=== PATIENT | female | born 1945 | race Caucasian/White ===

== ENCOUNTER → 2016-11-20 | Outpatient (CLI) | payer OTHER, MEDICAID | LOC: FIMAGING 13:13 | PROVIDERS: ATTEND Pain Medicine Interventional Pain Medicine | DX: M50.322 Other cervical disc degeneration at C5-C6 level (principal); M48.02 Spinal stenosis, cervical region; M46.92 Unspecified inflammatory spondylopathy, cervical region; G95.20 Unspecified cord compression; J44.9 Chronic obstructive pulmonary disease, unspecified; G89.4 Chronic pain syndrome; N18.5 Chronic kidney disease, stage 5; I25.10 Atherosclerotic heart disease of native coronary artery without angina pectoris; K21.9 Gastro-esophageal reflux disease without esophagitis; E03.9 Hypothyroidism, unspecified; G47.00 Insomnia, unspecified; F43.12 Post-traumatic stress disorder, chronic; R60.1 Generalized edema; F41.9 Anxiety disorder, unspecified ==

== ENCOUNTER → 2017-05-22 | Outpatient (CLI) | payer OTHER, MEDICAID ==
[~2017-05-22] MED LIST: ACETAMINOPHEN 500 MG TAB PO PRN; HYDROCODONE/APAP 5/325 TAB PO PRN; LIDOCAINE 2% 2 ML INJ ONE; NALOXONE HCL 0.4 MG/ML INJ IVP PRN; NS 500 ML IV PRN; ONDANSETRON 4 MG/2 ML VIAL IVP PRN; ONDANSETRON 4 MG/2 ML VIAL ONE; PHENYLEPHRINE 10 MG/ML SDV ONE; PROMETHAZINE HCL 25 MG/ML INJ ONE; PROPOFOL 200 MG/20 ML VIAL ONE; fentaNYL 100 MCG/2 ML INJ ONE
--- NOTE | 2017-05-22 13:17 | PDANEPAE ---
ANE Past Medical History - Cardiovascular History Hx Hypertension: Yes Hx Arrhythmias: Yes Hx Chest Pain: Yes Hx Coronary Artery / Peripheral Vascular Disease: Yes Hx CHF / Valvular Disease: Yes Hx Palpitations: No Cardiovascular History Comment: A-flutter; - Pulmonary History Hx COPD: Yes Hx Asthma/Reactive Airway Disease: Yes Hx Recent Upper Respiratory Infection: No Hx Oxygen in Use at Home: Yes O2 in Use at Home (L/minute): 2L Hx Sleep Apnea: No Sleep Apnea Screening Result - Last Documented: Positive Pulmonary History Comment: asthma; emphesema; PNA - Neurologic History Hx Cerebrovascular Accident: Yes Hx Seizures: Yes Hx Dementia: No Neurologic History Comment: seizures while ~1970;. TIA x2 - Endocrine History Hx Diabetes: Yes Hypothyroid: Yes Hyperthyroid: No Obesity: no Endocrine History Comment: Insulin dependent Diabetes (T cell issue); thyroid replacement; hypothyroidism; - Renal History Hx Renal Disorders: Yes Renal History Comment: chronic kidney disease w/out heart failure; - Liver History Hx Hepatic Disorders: No - Neurological & Psychiatric Hx Hx Neurological and Psychiatric Disorders: No Neurological / Psychiatric History Comment: PTSD; anxiety, depression; - Cancer History Hx Cancer: Yes Cancer History Comment: uterine ca - Congenital Disorder History Hx Congenital Disorders: Yes Congenital History Comment: B Club feet; ankylosing spondylitis; Ichthyosis vulgaris (fish scale skin); - GI History GERD: no Hx Gastrointestinal Disorders: Yes Gastrointestinal History Comment: Krones; gastrophoresis; - Other Health History Other Health History: insomnia; cervicalgia; - Chronic Pain History Chronic Pain: Yes (general body/joints;) - Surgical History Prior Surgeries: L rotator cuff; x 4; appy; cystic ovary removal Left ; R Oophrectomy; Bilateral club feet; full hysterectomy; ANE Review of Systems Review of Systems: - Exercise capacity METS (RN): 1 METS ANE Patient History - Allergies Allergies/Adverse Reactions: aspirin [Aspirin] Allergy (Severe, Verified 11/23/10 09:41) Hives gabapentin [Gabapentin] Allergy (Severe, Verified 11/23/10 09:41) Swelling/neck,face,throat NSAIDS (Non-Steroidal Anti-Inflamma [Nsaids] Allergy (Severe, Verified 11/23/10 09:41) Hives pregabalin [From Lyrica] Allergy (Severe, Verified 11/23/10 09:41) Swelling/neck,face,throat Shellfish *RETIRED-01/21/12 [Shellfish] Allergy (Severe, Verified 11/23/10 09:41 ) Hives strawberry [[place]] Allergy (Severe, Verified 11/23/10 09:41) Hives Sulfa (Sulfonamide Antibiotics) Allergy (Severe, Verified 11/23/10 09:41) Hives latex [Latex] Allergy (Intermediate, Verified 11/23/10 09:41) HIVES, TIGHT THROAT lorazepam [Lorazepam] Allergy (Intermediate, Verified 11/23/10 09:41) Other-Enter Comments Fish Containing Products [fish] Allergy (Verified 05/16/17 16:30) Milk Containing Products Allergy (Verified 05/16/17 16:30) tree nut [Nuts] Allergy (Verified 05/16/17 16:30) IODINE Allergy (Severe, Uncoded 11/23/10 09:41) Hives fruit Allergy (Uncoded 05/16/17 16:30) - Home Medications Home Medications: AMITRIPTYLINE HCL 03/13/09 [Last Taken Unknown] Cymbalta 60 mg PO DAILY 03/13/09 [Last Taken Unknown] GABAPENTIN 03/13/09 [Last Taken Unknown] Lasix 03/13/09 [Last Taken Unknown] OPANA 03/13/09 [Last Taken Unknown] POTASSIUM CHLORIDE 03/13/09 [Last Taken Unknown] Synthroid 03/13/09 [Last Taken Unknown] Verapamil HCl 03/13/09 [Last Taken Unknown] ZANAFLEX 03/13/09 [Last Taken Unknown] Zantac 03/13/09 [Last Taken Unknown] ACTOS 07/10/09 [Last Taken Unknown] AMITRIPTYLINE HCL 07/10/09 [Last Taken Unknown] Albuterol Sulfate 0.5 mg NEB Q4 PRN 07/10/09 [Last Taken Unknown] BENAZEPRIL HCL 07/10/09 [Last Taken Unknown] Glucophage 07/10/09 [Last Taken Unknown] Morphine Er 200mg 07/10/09 [Last Taken Unknown] PROMETHAZINE HCL 07/10/09 [Last Taken Unknown] cloNIDine 07/10/09 [Last Taken Unknown] ACETAMINOPHEN 1,000 mg PO BID 05/16/17 [Last Taken Unknown] Abilify 5 mg (*) 2.5 mg PO MWF 05/16/17 [Last Taken Unknown] Allopurinol 100 mg PO DAILY 05/16/17 [Last Taken Unknown] Antacid Anti-Gas Liquid 30 ml PO TID PRN 05/16/17 [Last Taken Unknown] Aquaphor Ointment (*) TID 05/16/17 [Last Taken Unknown] Artificial Tears Eye Ointment 1 unit EACHEYE DAILY 05/16/17 [Last Taken Unknown] Biofreeze with Ilex Gel PRN 05/16/17 [Last Taken Unknown] Bisacodyl (*) 10 mg PO Q4 PRN 05/16/17 [Last Taken Unknown] CETIRIZINE HCL 10 mg PO DAILY 05/16/17 [Last Taken Unknown] CLOBETASOL PROPIONATE 0.05 05/16/17 [Last Taken Unknown] Carboxymethylcellulose Sodium 1 drop EACHEYE PRN PRN 05/16/17 [Last Taken Unknown] Dilaudid 2 mg (*) 2 mg PO HS 05/16/17 [Last Taken Unknown] Fentanyl 50 mcg TD Q3D 05/16/17 [Last Taken Unknown] Fish Oil 1,000 mg Capsule 1,000 mg PO BID 05/16/17 [Last Taken Unknown] HYDROCORTISONE ACETATE 25 mg NC BID 05/16/17 [Last Taken Unknown] Herbals/Supplements -Info Only 05/16/17 [Last Taken Unknown] Humalog 100 unit SQ 05/16/17 [Last Taken Unknown] IMODIUM A-D 4 mg PO PRN 05/16/17 [Last Taken Unknown] LEVOTHYROXINE SODIUM 137 mcg PO DAILY 05/16/17 [Last Taken Unknown] Levemir 35 units SQ HS 05/16/17 [Last Taken Unknown] Levemir 60 units SQ 05/16/17 [Last Taken Unknown] Lidocaine 4% cream TD TID PRN 05/16/17 [Last Taken Unknown] Lisinopril 5 mg PO DAILY 05/16/17 [Last Taken Unknown] Melatonin 3 MG (*) 3 mg PO 05/16/17 [Last Taken Unknown] Metformin HCl 500 mg PO BID 05/16/17 [Last Taken Unknown] Methadone HCl 10 mg (*) 20 mg PO TID 05/16/17 [Last Taken Unknown] Miralax 17 gm (*) 17 gm PO PRN 05/16/17 [Last Taken Unknown] Naproxen 250 mg PO Q4 PRN 05/16/17 [Last Taken Unknown] Nucynta 75 mg PO DAILY PRN 05/16/17 [Last Taken Unknown] Restasis Opht Drops(*) 1 drop EACHEYE BID 05/16/17 [Last Taken Unknown] Spiriva Handihaler 18 mcg PUFF DAILY 05/16/17 [Last Taken Unknown] Triamcinolone 0.1% Cream EACHEAR DAILY 05/16/17 [Last Taken Unknown] Tussin Dm Syrup 10 ml PO Q4 PRN 05/16/17 [Last Taken Unknown] Venlafaxine HCl ER 150 mg PO DAILY 05/16/17 [Last Taken Unknown] Ventolin Hfa 2 puffs Q4 05/16/17 [Last Taken Unknown] Zantac 75 75 mg PO BID 05/16/17 [Last Taken Unknown] - Anes Hx Anes Hx: no prior problems - Smoking Hx Smoking Status: Never smoked Marijuana use: No - Alcohol Use Alcohol Use: None - Family Anes Hx Family Anes Hx: neg - N/A Family Hx Anesthesia Complications: denies ANE Labs/Vital Signs - Vital Signs Blood Pressure: 150/78 Heart Rate: 100 Respiratory Rate: 20 O2 Sat (%): 96 Height: 157.48 cm Weight: 71.668 kg ANE Physical Exam - Airway Neck exam: FROM Mallampati Score: Class 2 Mouth exam: dentures - Pulmonary Pulmonary: no respiratory distress, no rales or rhonchi, reduced air movement - Cardiovascular Cardiovascular: regular rate and rhythym - ASA Status ASA Status: III ANE Anesthesia Plan Anesthesia Plan: GA w LMA Total IV Anesthesia: No
--- NOTE | 2017-05-22 15:23 | POSTANESTH ---
Post Anesthetic Evaluation Cardiovascular Status: Normal, Stable Respiratory Status: Similar to Pre-op Cond. Level of Consciousness/Mental Status: Can Participate in Eval Pain Control: Adequate, Prn Tx Ordered Nausea/Vomiting Control: Inadeq, Add Tx Reqired Complications Possibly Related to Anesthesia: None Noted
[2017-05-22] MEDS: PROMETHAZINE HCL 25 MG/ML INJ IVP PRN ×2 (15:30→15:38)
[2017-05-22 16:04] VITALS: BP 150/72
[2017-05-22 16:43] VITALS: PULSE 89; RESP 18; TEMP 208.9; O2SAT 99
== END ==
LOC: FIMAGING 11:45
PROVIDERS: ATTEND Pain Medicine Interventional Pain Medicine
DX: M51.26 Other intervertebral disc displacement, lumbar region (principal); M46.96 Unspecified inflammatory spondylopathy, lumbar region; M46.97 Unspecified inflammatory spondylopathy, lumbosacral region
CPT/HCPCS: 72148; J2370; J2405; J2550; J2704; J3010

== ENCOUNTER → 2017-09-05 | Outpatient (CLI) | payer OTHER, MEDICAID | LOC: BHFA 13:15 | PROVIDERS: ATTEND Internal Medicine Cardiovascular Disease | DX: R94.31 Abnormal electrocardiogram [ECG] [EKG] (principal) ==

== ENCOUNTER 2018-04-02 05:26 | Observation (INO) | payer OTHER, MEDICAID ==
[2018-04-02] MEDS ORDERED: NS 1,000 ML IV ONE (05:35)
[2018-04-02] MEDS ORDERED: IOPAMIDOL (ISOVUE 370) 100 ML BTL IV ONE (05:41)
--- NOTE | 2018-04-02 05:41 | EDPHY ---
H & P Time Seen by Provider: 04/02/18 05:36 HPI/ROS: HPI CHIEF COMPLAINT: Left-sided muscle spasm left-sided weakness HISTORY OF PRESENT ILLNESS: This is a 73-year-old female, she presents emergency room by EMS from [facility]. States he woke up around 4:00 a.m. With pain left side of her body typically left arm left leg. She also reports weakness. She states this weakness is new for her. States typically she suffers from chronic pain chronic arthritic pain. States that time she has muscle spasms but feels that she is more weak on left side than normal. She denies any chest pain or shortness of breath, denies headache, denies focal numbness or tingling. Upon arrival to the emergency room is noted that she appears weak on left upper extremity left lower extremity. Possibly effort dependent. Due to left-sided weakness a stroke alert has been called upon arrival. Proceed to CT scan with a head without contrast angiogram head and neck. Of note this patient arrives with a most form that says no CPR, comfort measures only antibiotics okay. Patient med list reviewed it is extensive. Also extensive allergies. Her med list includes Eliquis. Past Medical History: History of syncope, bradycardia, diabetes poor control, chronic pain, COPD, gastroparesis, history of recurrent falls, poor coordination , hypothyroidism anxiety disorder hypertension chronic kidney disease depression insomnia, PTSD Past Surgical History: No recent surgery Social History: Resides at [facility] has been there for 7 years. Denies drugs alcohol tobacco. Family History: Noncontributory ROS REVIEW OF SYSTEMS: 10 Systems were reviewed and negative with the exception of the elements mentioned in the history of present illness. Exam Constitutional elderly, nontoxic triage nursing summary reviewed, vital signs reviewed, awake/alert. Eyes normal conjunctivae and sclera, EOMI, PERRLA. HENT normal inspection, atraumatic, moist mucus membranes, no epistaxis, neck supple/ no meningismus, no raccoon eyes. Respiratory clear to auscultation bilaterally, normal breath sounds, no respiratory distress, no wheezing. Cardiovascular rate normal, regular rhythm, no murmur, no edema, distal pulses normal. Gastrointestinal Anterior abdominal ventral hernia,soft, non-tender, no rebound, no guarding, normal bowel sounds, no distension, no pulsatile mass. Genitourinary no CVA tenderness. Musculoskeletal bilateral lower extremity pitting edema, mild erythema to the bilateral anterior shins, chronic, no midline vertebral tenderness, full range of motion, no calf swelling, no tenderness of extremities, no meningismus, good pulses, neurovascularly intact. Skin pink, warm, & dry, no rash, skin atraumatic. Neurologic on neurological exam patient has weakness of left upper extremity and left lower extremity. Easy to break. Unclear if this effort dependent. awake, alert and oriented x 3, AAOx3, motor intact, sensory intact, CN II-XII intact, normal cerebellar, normal vision, normal speech. Psychiatric normal mood/affect. Heme/Lymph/Immune no lymphadenopathy. Differential Diagnosis: Includes but is not limited to in a particular order muscle spasm, chronic arthritic pain, electrolyte disturbance, infection, dehydration, CVA, TIA Medical Decision Making: Plan for this patient given her left upper extremity left lower extremity weakness plan for stroke alert. Proceed directly with the CT head without contrast CT angiogram head and neck. Will speak with [facility]. Re-evaluation: Patient has a contrast allergy typically itching. Patient did get a CT head without contrast at 5:[address] angiogram was ordered however due to the allergy she will be premedicated with Benadryl and Solu-Medrol. She typically gets hives with contrast. No airway involvement or trouble breathing. Will consult [facility] for the left upper extremity left lower extremity weakness. [id number]: [facility] Dr. Stone seen and evaluated the patient. He does not feel that the patient is a tPA candidate. Her symptoms were started when she woke. She went to bed 11:00 p.m.. She is not a tPA candidate. She is able called her leg and left arm up in the air. He does recommend MRA of the brain MRI. Does not recommend getting CT angiogram head and neck at this time. He would like the patient admitted to the hospitalist service for further evaluation. No tPA at this time. Patient's NIH stroke scale upon arrival 2.0 NIH Stroke Scale/Score (NIHSS) from [email or web address] on 04/02/2018 All calculations should be rechecked by clinician prior to use RESULT SUMMARY: 2 points NIH Stroke Scale INPUTS: 1A: Level of consciousness > 0 = Alert; keenly responsive 1B: Ask month and age > 0 = Both questions right 1C: 'Blink eyes' & 'squeeze hands' > 0 = Performs both tasks 2: Horizontal extraocular movements > 0 = Normal 3: Visual kenny > 0 = No visual loss 4: Facial palsy > 0 = Normal symmetry 5A: Left arm motor drift > 1 = Drift, but doesn't hit bed 5B: Right arm motor drift > 0 = No drift for 10 seconds 6A: Left leg motor drift > 1 = Drift, but doesn't hit bed 6B: Right leg motor drift > 0 = No drift for 5 seconds 7: Limb Ataxia > 0 = No ataxia 8: Sensation > 0 = Normal; no sensory loss 9: Language/aphasia > 0 = Normal; no aphasia 10: Dysarthria > 0 = Normal 11: Extinction/inattention > 0 = No abnormality EKG interpretation by me on record in [employer] system. Impression time of EKG 6:02 a.m., sinus rhythm rate of 91. No signs of acute ischemia. CT scan head without contrast called to me by Dr. King calhoun. No bleed or stroke. Patient be admitted the hospitalist service for further evaluation. [facility] requested that she gets an MRI of the brain today and MRA of the vessels of the brain today. I relayed this to the hospitalist service. No tPA. She denies chest pain or shortness of breath. Plan for admission for observation and further evaluation. Dr. Aviles Accepts Source: Patient, EMS - Personal History Tetanus Vaccine Date: 11/2007 - Medical/Surgical History Hx Diabetes: Yes - Social History Smoking Status: Never smoked Constitutional: Initial Vital Signs Temperature (C) 36.7 C 04/02/18 05:34 Heart Rate 76 04/02/18 05:34 Respiratory Rate 18 04/02/18 05:34 Blood Pressure 172/83 H 04/02/18 05:34 O2 Sat (%) 99 04/02/18 05:34 O2 Delivery Mode Nasal Cannula O2 (L/minute) 2 Allergies/Adverse Reactions: aspirin [Aspirin] Allergy (Severe, Verified 04/02/18 05:33) Hives gabapentin [Gabapentin] Allergy (Severe, Verified 04/02/18 05:33) Swelling/neck,face,throat NSAIDS (Non-Steroidal Anti-Inflamma [Nsaids] Allergy (Severe, Verified 04/02/18 05:33) Hives pregabalin [From Lyrica] Allergy (Severe, Verified 04/02/18 05:33) Swelling/neck,face,throat Shellfish *RETIRED-01/21/12 [Shellfish] Allergy (Severe, Verified 04/02/18 05:33 ) Hives strawberry [[place]] Allergy (Severe, Verified 04/02/18 05:33) Hives Sulfa (Sulfonamide Antibiotics) Allergy (Severe, Verified 04/02/18 05:33) Hives latex [Latex] Allergy (Intermediate, Verified 04/02/18 05:33) HIVES, TIGHT THROAT Fish Containing Products [fish] Allergy (Verified 04/02/18 05:33) Milk Containing Products Allergy (Verified 04/02/18 05:33) tree nut [Nuts] Allergy (Verified 04/02/18 05:33) IODINE Allergy (Severe, Uncoded 04/02/18 05:33) Hives fruit Allergy (Uncoded 04/02/18 05:33) Home Medications: Medication Instructions Recorded Acetaminophen [Tylenol ES 500 mg 500 mg PO BID 04/02/18 (*)] Albuterol [Proventil Inhaler HFA 2 puffs IH Q4HRS PRN 04/02/18 (*)] Albuterol [Proventil Neb] 3 ml IH BID@08,16 04/02/18 Albuterol [Proventil Neb] 3 ml IH Q4HRS PRN 04/02/18 Allopurinol [Allopurinol 100 MG 100 mg PO DAILY 04/02/18 (*)] Apixaban [Eliquis] 2.5 mg PO BID 04/02/18 Biofreeze Gel 4% 1 suleiman TP QID PRN 04/02/18 Bisacodyl [Bisacodyl (*)] 10 mg PO PRN PRN 04/02/18 Bisacodyl [Dulcolax] 10 mg RC DAILY PRN 04/02/18 Buprenorphine HCl/Naloxone HCl 1 each SL Q4HRS PRN 04/02/18 [Suboxone 2 mg-0.5 mg SL Film] Buprenorphine HCl/Naloxone HCl 1 each SL TID 04/02/18 [Suboxone 8 mg-2 mg SL Film] Carboxymethylcellulose 1% [Refresh 1 drop EACHEYE DAILY14 04/02/18 Celluvisc (*)] Carboxymethylcellulose 1% [Refresh 1 drop EACHEYE Q2HRS 04/02/18 Celluvisc (*)] Cetirizine [ZyrTEC 10 mg (*)] 10 mg PO HS 04/02/18 Cholecalciferol Vit D3 [Vitamin D3 50,000 unit PO Q30D 04/02/18 (*)] Clobetasol Propionate [Temovate] 1 suleiman TP DAILY PRN 04/02/18 Cyclobenzaprine [Flexeril 10 MG 10 mg PO HS 04/02/18 (*)] DULoxetine [Cymbalta 30 MG (*)] 30 mg PO HS 04/02/18 DULoxetine [Cymbalta 60 MG (*)] 60 mg PO DAILY 04/02/18 Etodolac [ETODOLAC] 400 mg PO BID 04/02/18 Furosemide [Lasix 20 MG (*)] 20 mg PO DAILY 04/02/18 Herbals/Supplements -Info Only 1 ea PO DAILY 04/02/18 Hydrocortisone Acetate 25 mg TX BID PRN 04/02/18 [Hemorrhoidal Hc 25 mg supp (*)] Insulin Glargine [Lantus] 10 unit SC DAILY 04/02/18 Levothyroxine [Synthroid 150 mcg 150 mcg PO DAILY06 04/02/18 (*)] Lidocaine 2% Cream 1 suleiman TP BID 04/02/18 Lidocaine 5% [Lidocaine 5% Oint] 1 suleiman TP Q4HRS PRN 04/02/18 Lidocaine [Lidocaine 4% cream] 1 suleiman TP DAILY PRN 04/02/18 Linagliptin [Tradjenta] 5 mg PO DAILY 04/02/18 Lisinopril [Zestril 5 mg (*)] 5 mg PO DAILY@17 04/02/18 Loperamide HCl [Imodium 2 mg (*)] 2 mg PO PRN PRN 04/02/18 Magnesium Hydroxide [Milk of 30 ml PO DAILY PRN 04/02/18 Magnesia] Melatonin [Melatonin 3 MG (*)] 3 mg PO HS 04/02/18 Metoclopramide [Reglan 5 mg (*)] 5 mg PO BID 04/02/18 Congress-3 Fatty Acids [Fish Oil 1000 1,000 mg PO BID 04/02/18 mg (*)] Omeprazole 20 mg PO DAILY06 04/02/18 Ondansetron HCl [Zofran] 4 mg PO Q6HRS PRN 04/02/18 Petrolat,Wht/Min Oil/Sod Chl 1 suleiman EACHEYE HS 04/02/18 [Refresh P.m. Ointment] Polyethylene Glycol 3350 [Miralax 17 gm PO DAILY PRN 04/02/18 17 gm (*)] Tiotropium Inhaler [Spiriva 1 inh IH DAILY 04/02/18 Inhaler (RX)] buPROPion SR [Wellbutrin 150mg SR 150 mg PO BID 04/02/18 (*)] cycloSPORINE 0.05% [Restasis Opht 1 drop EACHEYE BID 04/02/18 Drops(*)] guaiFENesin/DEXTROMETHORPHAN 10 ml PO Q4HRS PRN 04/02/18 [Tussin Dm Liquid] metFORMIN HCL [Glucophage 500 mg 500 mg PO BIDMEAL 04/02/18 (*)] Medical Decision Making - Data Points Laboratory Results: Laboratory Results 04/02/18 05:39 04/02/18 05:39 Medications Given: Discontinued Medications Diphenhydramine HCl (Benadryl Injection) 25 mg IVP EDNOW ONE Stop: 04/02/18 05:54 Last Admin: 04/02/18 05:55 Dose: 25 mg Sodium Chloride (Ns) 1,000 mls @ 500 mls/hr IV EDNOW ONE PRN Reason: Protocol Stop: 04/02/18 07:34 Last Admin: 04/02/18 06:05 Dose: 1,000 mls Insulin Glargine (Lantus Syringe) 10 units SC ONCE ONE Stop: 04/02/18 18:01 Last Admin: 04/02/18 17:56 Dose: Not Given Lisinopril (Zestril) 5 mg PO DAILY@17 GLORIA Stop: 09/29/18 16:59 Last Admin: 04/02/18 17:05 Dose: 5 mg Lorazepam (Ativan Injection) 1 mg IVP EDNOW ONE Stop: 04/02/18 06:48 Last Admin: 04/02/18 06:50 Dose: 1 mg Methylprednisolone Sodium Succinate (Solu-Medrol) 125 mg IVP EDNOW ONE Stop: 04/02/18 05:54 Last Admin: 04/02/18 05:56 Dose: 125 mg Morphine Sulfate (Morphine) 2 - 4 mg IVP Q4HRS PRN PRN Reason: Pain, Severe Unable to Take PO Stop: 04/12/18 16:57 Last Admin: 04/02/18 17:22 Dose: 4 mg Point of Care Test Results: Chemistry 04/02/18 05:45 POC Sodium 137 mEq/L mEq/L (135-145) POC Potassium 4.4 mEq/L mEq/L (3.3-5.0) POC Chloride 100 mEq/L mEq/L (97-110) POC BUN 32 mg/dL H mg/dL (7-23) POC Creatinine 1.5 mg/dL H mg/dL (0.6-1.0) POC Glucose 167 mg/dL H mg/dL (70-100) ISTAT H&H 04/02/18 05:45 POC Hgb 10.9 gm/dL L gm/dL (12.6-16.3) POC Hct 32 % L % (38-47) Departure - Departure Disposition: [facility] Inpatient Acute Clinical Impression: Arm pain Qualifiers: Laterality: left Qualified Code(s): M79.602 - Pain in left arm Leg pain Qualifiers: Laterality: left Qualified Code(s): M79.605 - Pain in left leg Condition: Fair
[2018-04-02 05:43] LABS: PLATELET COUNT 171 10^3/uL (150-400)
[2018-04-02 05:51] LABS: INR 1.06 (0.83-1.16)
[2018-04-02] MEDS ORDERED: methylPREDNISolone SOD SUCC 125 MG/2 ML VIAL IVP ONE (05:53)
[2018-04-02] MEDS ORDERED: ONDANSETRON DISINTEGRATING 4 MG TAB PO PRN (06:21)
[2018-04-02] MEDS ORDERED: ACETAMINOPHEN 325 MG TAB PO PRN (06:21)
[2018-04-02] MEDS ORDERED: ONDANSETRON 4 MG/2 ML VIAL IVP PRN (06:21)
[2018-04-02] MEDS ORDERED: LORazepam 2 MG/ML INJ ONE (06:46)
[2018-04-02] MEDS ORDERED: LORazepam 2 MG/ML INJ IVP ONE (06:47)
--- NOTE | 2018-04-02 06:53 | PDGENHP ---
History and Physical - Chief Complaint Weakness, pain - History of Present Illness 73 yo F w/ hx of depression, chronic pain, ?AF, DM, and COPD presents with L sided pain and weakness. The patient went to sleep in her usual state of health around 9 PM last night. She was woken up around 4 AM by severe L sided pain. She then felt like she also couldn't move her L side. She was brought to the ED and a stroke alert was called. Initial CTH did not show acute findings. Her exam has been somewhat inconsistent while here. When asked to move her L arm she has very little strength. However, when performing other tasks and distracted, she moves her L arm well. She was evaluated by [facility] via telemedicine and they did not recommend tPA noting wake-up stroke. They recommended MRI/MRA of brain noting hx of contrast allergy and CKD. Case discussed with ED physician Dr. Medina; records reviewed. History Information - Allergies/Home Medication List Allergies/Adverse Reactions: aspirin [Aspirin] Allergy (Severe, Verified 04/02/18 05:33) Hives gabapentin [Gabapentin] Allergy (Severe, Verified 04/02/18 05:33) Swelling/neck,face,throat NSAIDS (Non-Steroidal Anti-Inflamma [Nsaids] Allergy (Severe, Verified 04/02/18 05:33) Hives pregabalin [From Lyrica] Allergy (Severe, Verified 04/02/18 05:33) Swelling/neck,face,throat Shellfish *RETIRED-01/21/12 [Shellfish] Allergy (Severe, Verified 04/02/18 05:33 ) Hives strawberry [Martelle] Allergy (Severe, Verified 04/02/18 05:33) Hives Sulfa (Sulfonamide Antibiotics) Allergy (Severe, Verified 04/02/18 05:33) Hives latex [Latex] Allergy (Intermediate, Verified 04/02/18 05:33) HIVES, TIGHT THROAT Fish Containing Products [fish] Allergy (Verified 04/02/18 05:33) Milk Containing Products Allergy (Verified 04/02/18 05:33) tree nut [Nuts] Allergy (Verified 04/02/18 05:33) IODINE Allergy (Severe, Uncoded 04/02/18 05:33) Hives fruit Allergy (Uncoded 04/02/18 05:33) Home Medications: Cymbalta 60 mg PO DAILY 03/13/09 [Last Taken Unknown] Lasix 03/13/09 [Last Taken Unknown] Albuterol Sulfate 0.5 mg NEB Q4 PRN 07/10/09 [Last Taken Unknown] ACETAMINOPHEN 1,000 mg PO BID 05/16/17 [Last Taken Unknown] Allopurinol 100 mg PO DAILY 05/16/17 [Last Taken Unknown] Antacid Anti-Gas Liquid 30 ml PO TID PRN 05/16/17 [Last Taken Unknown] Biofreeze with Ilex Gel PRN 05/16/17 [Last Taken Unknown] Bisacodyl (*) 10 mg PO Q4 PRN 05/16/17 [Last Taken Unknown] CETIRIZINE HCL 10 mg PO DAILY 05/16/17 [Last Taken Unknown] CLOBETASOL PROPIONATE 0.05 05/16/17 [Last Taken Unknown] Carboxymethylcellulose Sodium 1 drop EACHEYE PRN PRN 05/16/17 [Last Taken Unknown] Fish Oil 1,000 mg Capsule 1,000 mg PO BID 05/16/17 [Last Taken Unknown] HYDROCORTISONE ACETATE 25 mg PA BID 05/16/17 [Last Taken Unknown] IMODIUM A-D 4 mg PO PRN 05/16/17 [Last Taken Unknown] LEVOTHYROXINE SODIUM 137 mcg PO DAILY 05/16/17 [Last Taken Unknown] Lidocaine 4% cream TD TID PRN 05/16/17 [Last Taken Unknown] Lisinopril 5 mg PO DAILY 05/16/17 [Last Taken Unknown] Melatonin 3 MG (*) 3 mg PO HS 05/16/17 [Last Taken Unknown] Miralax 17 gm (*) 17 gm PO PRN 05/16/17 [Last Taken Unknown] Restasis Opht Drops(*) 1 drop EACHEYE BID 05/16/17 [Last Taken Unknown] Spiriva Handihaler 18 mcg PUFF DAILY 05/16/17 [Last Taken Unknown] Cyclobenzaprine 04/02/18 [Last Taken Unknown] ETODOLAC 04/02/18 [Last Taken Unknown] Eliquis 04/02/18 [Last Taken Unknown] Fish Oil 1,000 mg Softgel 04/02/18 [Last Taken Unknown] Lantus 04/02/18 [Last Taken Unknown] Metformin HCl 04/02/18 [Last Taken Unknown] Metoclopramide 04/02/18 [Last Taken Unknown] Omeprazole 04/02/18 [Last Taken Unknown] Refresh P.m. Ointment 04/02/18 [Last Taken Unknown] Suboxone 8 mg-2 mg SL Film 04/02/18 [Last Taken Unknown] Tradjenta 04/02/18 [Last Taken Unknown] Ventolin Hfa 04/02/18 [Last Taken Unknown] Wellbutrin 150mg SR (*) 04/02/18 [Last Taken Unknown] Zofran 04/02/18 [Last Taken Unknown] I have personally reviewed and updated: family history, medical history - Past Medical History atrial fibrillation, COPD, diabetes type 2, hypertension Additional medical history: Chronic pain. Depression - Surgical History Additional surgical history: RICKY. [place]ota Rotator cuff - Family History Positive for: diabetes type II - Social History Smoking Status: Never smoked Review of Systems Review of Systems: ROS: 10pt was reviewed & negative except for what was stated in HPI & below Physical Exam Physical Exam: Temp Pulse Resp BP Pulse Ox 36.7 C 89 18 160/74 H 98 04/02/18 05:34 04/02/18 06:19 04/02/18 06:19 04/02/18 06:19 04/02/18 06:19 Constitutional: chronically ill appearing, uncomfortable Eyes: PERRL, anicteric sclera Ears, Nose, Mouth, Throat: moist mucous membranes, no oral mucosal ulcers Cardiovascular: regular rate and rhythym, systolic murmur Respiratory: no respiratory distress, clear to auscultation Gastrointestinal: normoactive bowel sounds, soft, non-tender abdomen Skin: warm, other (Chronic venous stasis dermatitis) Neurologic: AAOx3, weakness (L sided leg>arm; inconsistently noted), No facial droop Psychiatric: depressed, flat affect Lab Data & Imaging Review 04/02/18 05:39 04/02/18 05:39 WBC 2.79 10^3/uL (3.80-9.50) L 04/02/18 05:39 RBC 3.25 10^6/uL (4.18-5.33) L 04/02/18 05:39 Hgb 10.8 g/dL (12.6-16.3) L 04/02/18 05:39 POC Hgb 10.9 gm/dL (12.6-16.3) L 04/02/18 05:45 Hct 31.3 % (38.0-47.0) L 04/02/18 05:39 POC Hct 32 % (38-47) L 04/02/18 05:45 MCV 96.3 fL (81.5-99.8) 04/02/18 05:39 MCH 33.2 pg (27.9-34.1) 04/02/18 05:39 MCHC 34.5 g/dL (32.4-36.7) 04/02/18 05:39 RDW 13.0 % (11.5-15.2) 04/02/18 05:39 Plt Count 171 10^3/uL (150-400) 04/02/18 05:39 MPV 10.0 fL (8.7-11.7) 04/02/18 05:39 Neut % (Auto) 49.4 % (39.3-74.2) 04/02/18 05:39 Lymph % (Auto) 31.5 % (15.0-45.0) 04/02/18 05:39 Summers % (Auto) 17.6 % (4.5-13.0) H 04/02/18 05:39 Eos % (Auto) 0.0 % (0.6-7.6) L 04/02/18 05:39 Baso % (Auto) 1.1 % (0.3-1.7) 04/02/18 05:39 Nucleat RBC Rel Count 0.0 % (0.0-0.2) 04/02/18 05:39 Absolute Neuts (auto) 1.38 10^3/uL (1.70-6.50) L 04/02/18 05:39 Absolute Lymphs (auto) 0.88 10^3/uL (1.00-3.00) L 04/02/18 05:39 Absolute Monos (auto) 0.49 10^3/uL (0.30-0.80) 04/02/18 05:39 Absolute Eos (auto) 0.00 10^3/uL (0.03-0.40) L 04/02/18 05:39 Absolute Basos (auto) 0.03 10^3/uL (0.02-0.10) 04/02/18 05:39 Absolute Nucleated RBC 0.00 10^3/uL (0-0.01) 04/02/18 05:39 Immature Gran % 0.4 % (0.0-1.1) 04/02/18 05:39 Immature Gran # 0.01 10^3/uL (0.00-0.10) 04/02/18 05:39 PT 14.0 SEC (12.0-15.0) 04/02/18 05:39 INR 1.06 (0.83-1.16) 04/02/18 05:39 POC Sodium 137 mEq/L (135-145) 04/02/18 05:45 Sodium 138 mEq/L (135-145) 04/02/18 05:39 POC Potassium 4.4 mEq/L (3.3-5.0) 04/02/18 05:45 Potassium 4.9 mEq/L (3.3-5.0) 04/02/18 05:39 POC Chloride 100 mEq/L (97-110) 04/02/18 05:45 Chloride 99 mEq/L (97-110) 04/02/18 05:39 Carbon Dioxide 28 mEq/l (22-31) 04/02/18 05:39 Anion Gap 11 mEq/L (6-14) 04/02/18 05:39 POC BUN 32 mg/dL (7-23) H 04/02/18 05:45 BUN 33 mg/dL (7-23) H 04/02/18 05:39 Creatinine 1.4 mg/dL (0.6-1.0) H 04/02/18 05:39 POC Creatinine 1.5 mg/dL (0.6-1.0) H 04/02/18 05:45 Estimated GFR 37 04/02/18 05:39 Glucose 156 mg/dL (70-100) H 04/02/18 05:39 POC Glucose 167 mg/dL (70-100) H 04/02/18 05:45 Calcium 9.5 mg/dL (8.5-10.4) 04/02/18 05:39 Cholesterol 210 mg/dL (140-220) 04/02/18 05:40 Cholesterol Risk Factr 2.4 (0.2-1.0) H 04/02/18 05:40 Non-HDL Cholesterol 186 mg/dL (90-129) H 04/02/18 05:40 HDL Cholesterol 24 mg/dL (40-85) L 04/02/18 05:40 Cholesterol/HDL Ratio 8.75 RATIO (1.00-4.44) H 04/02/18 05:40 Imaging Review: CT Prelim: Atrophy and probably small vessel dz More prominent than in 2011 No bleeed Prelim called to ER @ 0608 hrs Visualized and Interpreted EKG results: Yes EKG Interpretation: Positive for: normal sinsus rhythm Assessment & Plan Assessment: 73 yo F w/ hx of depression, chronic pain, ?AF, DM, and COPD presents with L weakness possibly c/w TIA or stroke. Plan: 1. L sided weakness, pain - Complaints of L sided weakness upon waking up; weakness persists but exam findings have been inconsistent. She has been evaluated by [facility] who did not recommend tPA due to last known normal being 9 PM last night. She has CKD and a contrast alergy so CTA's not ideal. - Admit for observation - Monitor on telemetry - MRI/MRA of brain recommended by [facility] - Carotid ultrasounds - Lipid panel, A1c - PT/OT/SENIOR SUPPLIER QUALITY ENGINEER evaluations - Neurology consultation placed 2. Leukopenia - Unclear etiology, she does not have infectious complaints. - Monitor CBC 3. Normocytic anemia - Chronic, will check ferritin and B12. 4. IDDM - On insulin glargine 10 u qD + orals at [facility] - Continue home regimen pending reconciliation - Monitor BG ACHS, D50 IV PRN for hypoglycemia 5. CKD - Creatinine similar to last known value. - Avoid nephrotoxic agents, renally dose medications 6. COPD - No evidence of acute exacerbation; continue home medications pending reconciliation. 7. Chronic pain - long standing, on numerous medications. 8. AF - She had a 30 day monitor in September of this year that did not reveal arrhythmias. ECG on admission in NSR. Diet - Regular pending swallow screen Code - DNR per MOST form Ppx - SCDs for now, apixaban on home list Dispo - Admit under observation status
--- NOTE | 2018-04-02 07:06 | CPEKG ---
Test Reason : OPEN Blood Pressure : / mmHG Vent. Rate : 091 BPM Atrial Rate : 091 BPM P-R Int : 176 ms QRS Dur : 092 ms QT Int : 413 ms P-R-T Axes : 035 -22 036 degrees QTc Int : 509 ms Sinus rhythm Borderline left axis deviation Prolonged QT interval Confirmed by Branden Lantigua ([id number]) on 04/02/2018 7:05:19 AM Referred By: Confirmed By:Branden Lantigua
[2018-04-02] MEDS ORDERED: D50W 25 GM/50 ML SYR IVP PRN ×2 (07:10→15:33)
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
--- NOTE | 2018-04-02 11:12 | ECHO ---
[email or web address] [address] [address] Main: [phone] Fax: Transthoracic Echocardiogram Name: PANTERA SANCHEZ MR#: [id number] Study Date: 04/02/2018 Study Time: 09:10 AM Date of : 1945 Age: 73 year(s) Height: 162.6 cm (64 in.) Weight: 70.31 kg (155 lb.) BSA: 1.76 m2 Gender: Female Examination: Echo Indication: ?TIA Image Quality: Technically Difficult Contrast: Requested by: David Briceño BP: 174 mmHg/78 mmHg Heart Rate: Rhythm: Indication: ?TIA Procedure Staff Vp Account Director: Catie Riley RDCS Reading Physician: Eliceo Maldonado MD Requesting Provider: Conclusions: No pericardial effusion. Preserved LV systolic function. Calcification of the mitral valve annulus. Calcification of the aortic valve. Mild tricuspid regurgitation with normal right ventricular systolic pressures. Measurements: Chambers Valvular Assessment AV/MV Valvular Assessment TV/PV Normal Normal Normal Name Value Range Name Value Range Name Value Range Ao Veronica (2D): 2.3 cm (1.4 cm-2.6 AV Vmax: 1.94 m/s (1 m/s-1.7 TR Vmax: 2.51 mm/s ( - ) cm) m/s) TR PGmax: 25 mmHg ( - ) IVSd (2D): 1.1 cm (0.6 cm-1.1 AV maxP mmHg ( - ) syst. PAP: 30 mmHg ( - ) cm) AV meanP mmHg ( - ) PV Vmax: 1.07 m/s (0.6 m/s-0.9 LVDd (2D): 5.1 cm (3.9 cm-5.3 JJ (VTI): 2.1 cm ( - ) m/s) cm) MV E Vmax: 0.72 m/s ( - ) PV PGmax: 5 mmHg ( - ) LVDs (2D): 3.1 cm (2.1 cm-4 MV A Vmax: 1.00 m/s ( - ) cm) MV E/A: 0.72 ( - ) LVPWd (2D): 1.0 cm ( - ) MV PHT: 0.055 s ( - ) LVOTd 2.0 cm 2.0 cm mm MVA (PHT): 4.0 s ( - ) Visual EF: 55 % RVDd(2D): 3.7 cm (1.9 cm-3.8 cmmm) Continued Measurements: Chambers Valvular Assessment AV/MV Valvular Assessment TV/PV Name Value Name Value Name Value LADs: 3.9 cm MV DecTime: 201 m/s CVP (est.): 5 mmHg LADs Lon.3 cm MV E/E' Lateral: 11.20 LA Area: 20.1 cm2 LA Volume: 56 ml Patient: PANTERA SANCHEZ Study Date: 04/02/2018 Page 1 of 2 09:10 AM LA Volume Index: 31.8 ml/m2 RA Area: 17.6 cm2 Additional Vessels Name Value Ao Ascendin.7 cm Findings: Left Ventricle: Normal size left ventricle. No LV hypertrophy. Normal global systolic LV function. The ejection fraction is visually estimated to be 55 %. No regional wall motion abnormality. Normal diastolic LV function. Right Ventricle: Normal size right ventricle. Normal RV function. Left Atrium: The left atrium is normal in size. Right Atrium: The right atrium is normal in size. Mitral Valve: The mitral valve is normal in appearance and function. Mild mitral valve leaflet calcification is present. Mild mitral valve regurgitation is present. No mitral stenosis is present. Aortic Valve: The aortic valve is tri-leaflet. Aortic sclerosis is present. Trivial aortic valve regurgitation. No aortic valve stenosis is present. Tricuspid Valve: The tricuspid valve is normal in appearance and function. Mild tricuspid regurgitation is present. The pulmonary artery pressure is normal. Right ventricular systolic pressure measures 30mmHg. Pulmonic Valve: The pulmonic valve is normal in appearance and function. There is no pulmonic regurgitation seen. Aorta: The aorta is normal. Normal size aortic root measuring 2.3 cm. Normal size ascending aorta measuring 2.7 cm. IVC: Subcostal is technically difficult. Pericardium: No pericardial effusion. There is pericardial fat. No pleural effusion. (No Signature Object) Patient: PANTERA SANCHEZ Study Date: 04/02/2018 Page 2 of 2 09:10 AM [id number]
--- NOTE | 2018-04-02 11:56 | ASMTCMCOM ---
CM Note CM Note Notes: Pt with numerous co-morbidities in for L side weakness. Pt has resided at [facility] last 7 years. Michael with [facility] aware of pt admission. Pt having stoke workup. DIRECTOR OF ONLINE EDUCATION rec pending. Pt to return to [facility] at d/c. CM to follow. Date Signed: 04/02/2018 11:56 AM Electronically Signed By:CLAUDIA Aguilar
--- NOTE | 2018-04-02 13:01 | GCON ---
NEUROLOGIC CONSULTATION REFERRING PHYSICIAN: David Aviles MD HISTORY: The patient is a 73-year-old woman whom I am asked to see in neurologic consultation regard ing possible stroke. She says she resides at [facility] and developed weakness. It was evident e rojelio this morning when she got up and had some left-sided weakness. She came to the emergency room a s a stroke alert and did not have any evidence of definitive stroke outside of the left-sided weaknes s, but that was somewhat variable. She had a stat head CT that was unremarkable. She did not have C T angiogram of head and neck, but has subsequently had a carotid ultrasound, which was unremarkable, and echocardiogram shows no embolic source. She has had MR angiogram of the head as well. There gladys wed a little bit of segmental narrowing of the left M1 and perhaps some possible narrowing of the P1 segment of the left posterior cerebral artery. Otherwise, nothing else more specific. According to the allergies, she is allergic to aspirin. However, she is on Eliquis. She has a histo ry of atrial fibrillation. She says that she still has weakness on her left side and says it does not quite feel right. ADDITIONAL PAST MEDICAL HISTORY: Diabetes type 2, hypertension, COPD, chronic pain and depression. FAMILY HISTORY: Diabetes. HABITS: Smoking history is negative. No alcohol. PHYSICAL EXAM: VITAL SIGNS: Blood pressure is 174/90, pulse of 93, respirations 14, temperature 36. 9. GENERAL: She is overweight, in no acute distress. NECK: Supple, with no bruits or masses. CAR DIAC: Regular rate and rhythm. No murmur. NEUROLOGIC: She is awake and alert and oriented and abl e to communicate effectively. Pupils 3 mm and reactive. Extraocular movements are intact. Normal f acial movement, and she says she feels things less on her left face compared to the right. Palate el evates symmetrically. Tongue protrudes midline. Motor exam: Normal muscle bulk and tone and incons istent left-sided strength. She does not fully overcome gravity voluntarily, but when I put her arm in an elevated position, or her leg, she keeps it there for a few seconds and then looks more volitio niki to be dropping it or pulling it down toward the bed. Strength is probably at least in the 4/5 range on the left side. With sensation testing, she feels everything is a little less on the left si de than the right. Reflexes are hypoactive throughout. IMPRESSION: The patient has some left-sided weakness and sensory complaints, with some variability, making it difficult to know how much of this is truly objectively worse. 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 The MRI did not show stroke, which is reassuring, and I told her about that. We do not see any definitive embolic source from any of the diagnostic studies. She is already on El iquis for secondary stroke prophylaxis in the setting of atrial fibrillation. There are really no ad ditional diagnostic studies or treatment that is needed, other than rehabilitation therapies, which c an be done at [facility] if that is agreed to. Therefore, I do not feel she has to stay in the spital if that can all be arranged and then she can simply follow up as needed. She does not need ro utine neurologic followup after discharge. /[id number]/MODL
[2018-04-02] MEDS ORDERED: LIDOCAINE 4% 15 GM CREAM TP PRN (15:28)
[2018-04-02] MEDS ORDERED: Buprenorphine Hcl/Naloxone Hcl [Suboxone 2 Mg-0.5 Mg Sl Film] SL PRN (15:38)
--- NOTE | 2018-04-02 15:50 | PDDCSUM ---
Discharge Summary Discharge Summary: Date of Admission: April 02, 2018 Date of Discharge: April 04, 2018 Discharge Diagnoses: Left-sided pain Generalized weakness Chronic pain, uncontrolled Leukopenia, mild Normocytic Anemia, stable COPD DM Hypertension AF Admission Diagnoses: Left-sided weakness, pain Leukopenia Normocytic anemia IDDM CKD COPD Chronic pain AF Consultants: Neurology-Dr. Asa Ochoa [facility] Course: The patient is a 73-year-old female with chronic pain who developed new left sided pain a couple weeks prior to presentation. She said she was evaluated by her outpatient provider but afterward patient still reported uncontrolled pain. Patient woke up early in the morning on April 02 complaining of left- sided pain and weakness. She was sent to the ED for concerns about possible stroke. In the hospital, patient was evaluated by [facility] in the ED and tPA was not recommended as she had woken up with the symptoms. Patient underwent MRI/MRA of brain, which showed no stroke. In the daytime, patient underwent multiple tests and was evaluated by the in-hospital Neurology service , who did not feel patient had suffered a TIA or stroke because her symptoms were variable throughout her visit. Patient is already on Eliquis to prevent cardioembolic stroke 2/2 AF. 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 Better pain management and continued PT/OT are recommended for the patient. Patient may follow up with Neurology if the condition worsens. [facility], later in the day. Physical Exam: Gen: alert, oriented, in NAD. MSK: 4/5 strength b/l handgrip/foot flexion and ext Neuro: CN II-XII grossly intact. Psych: appropriate mood/affect. Skin: Condition: Fair. Discharged to: half-way facility. Pertinent tests/labs/imaging: Brain MRI - limited study w/ motion artifact. Mild periventricular and deep hemispheric white matter change that can be seen w/ small vessel ischemic disease. No evidence for acute infarct. Mild generalized cerebral atrophy. Head MRA - Probable short segment mild narrowing in the left M1 segment of the left middle cerebral artery versus motion artifact and also question narrowing at the origin of the P1 segment at the left posterior cerebral artery, most likely from atherosclerotic change. US carotid arteries: study limited by motion. No significant stenosis bilaterally. CT Head w/o contrast: negative for hemorrhage or mass effect. Atrophy and presumed small vessel disease. EKG: NSR, Rt 90, QTc 500, borderline LAFB. CXR: Chronic cardiomegaly w/o obvious failure. TTE: No pericardial effusion. Preserved LV systolic function (EF 55%). Calcification of the mitral valve annulus.Calcification of the aortic valve. Mild tricuspid regurgitation with normal right ventricular systolic pressures. Hgb - 10.9. ANC - 1380. Medications: Please see med rec form. Resume home meds. Special instructions: Chronically wheelchair bound. Stand and transfer with assistance. PT/OT goals - return patient to her baseline mobility. Follow up: PCP in 3-5 days Greater than 30 minutes of total time was spent on counseling and coordination of care for this patient's discharge.
--- NOTE | 2018-04-02 15:53 | ASMTDCNOTE ---
Case Management Discharge Discharge Order Complete? Answers: Yes Patient to Obtain Answers: Other Notes: [facility] Medications Transportation Arranged Answers: [facility] W[facility] EMTALA Complete Answers: No Case Management Transport Answers: Yes Form Complete Faxed Final Orders Answers: Yes Agency/Facility Transfer Answers: Yes Report Printed & Faxed to Receiving Agency Family Notified Answers: No Discharge Comments Notes: Pts case discussed w/ Dr. Chavez. Pt is being discharged back to [facility]. CM notified Michael at [facility] of the d/c. DC orders sent. CM provided TORRES Perez w/ phone number to give report. CM arranged for a [facility] w/c transport. PCS form completed in case they bring a stretcher. CM available for changes. Plan: [facility] Date Signed: 04/02/2018 03:52 PM Electronically Signed By:SAMREEN Smith
--- NOTE | 2018-04-02 15:56 | PDIAF ---
- Diagnosis Diagnosis: L sided pain, weakness. Chronic pain. COPD. DM. HTN. Gout. Code Status: Do Not Resuscitate - Medication Management Discharge Medications: electronically signed and located in the Home Medication List. - Orders Services needed: Registered Nurse, Certified Preload Supervisor, Master Supervisor Dental Laboratory , Physical Therapy, Occupational Therapy Oxygen: 2L NC (baseline) Diet Recommendation: cardiac -low fat low salt, ADA 1800 consistent carb Diet Texture: Regular Texture Diet, Thin Liquids, Meds Whole w/Liquids Activity/Weight Bearing Restrictions: weight bearing as tolerated. Wheelchair bound, needs assistance with standing and transfers. - Follow Up Care Current Providers and Referrals: NONE *PRIMARY CARE P,. [Unknown] - 3-5 days (PCP may refer patient to Neurology if weakness/pain continue to persist. )
[2018-04-02 16:03] VITALS: BP 164/83
[2018-04-02] MEDS ORDERED: METHADONE HCL 5 MG TAB PO SCH (16:15)
[2018-04-02] MEDS ORDERED: INSULIN REGULAR HUMAN 100 UNIT/ML UNIT SC SCH ×2 (16:16→17:30)
[2018-04-02] MEDS ORDERED: LISINOPRIL 5 MG TAB PO SCH (17:00)
[2018-04-02] MEDS ORDERED: INSULIN REGULAR HUMAN 100 UNIT/ML UNIT ONE (17:46)
[2018-04-02] MEDS ORDERED: INSULIN GLARGINE 100 UNITS/ML UNIT SC ONE (18:00)
[2018-04-02] MEDS ORDERED: APIXABAN 2.5 MG TAB PO SCH (21:00)
[2018-04-02] MEDS ORDERED: buPROPion SR 150 MG TAB PO SCH (21:00)
[2018-04-02] MEDS ORDERED: cycloSPORINE 0.05% 30 DROPERETTE/BOX EACHEYE SCH (21:00)
[2018-04-02] MEDS ORDERED: CYCLOBENZAPRINE 10 MG TAB PO SCH (21:00)
[2018-04-02] MEDS ORDERED: DULoxetine 30 MG CAP PO SCH (21:00)
[2018-04-02] MEDS ORDERED: METOCLOPRAMIDE 5 MG TAB PO SCH (21:00)
[2018-04-02] MEDS ORDERED: OMEGA-3 FATTY ACIDS 1,000 MG CAP PO SCH (21:00)
[2018-04-02] MEDS ORDERED: ETODOLAC 400 MG PO SCH (21:00)
[2018-04-02] MEDS ORDERED: MELATONIN 3 MG TAB PO SCH (21:00)
[2018-04-03] MEDS ORDERED: LEVOTHYROXINE 150 MCG TAB PO SCH (06:00)
[2018-04-03] MEDS ORDERED: INSULIN GLARGINE 100 UNITS/ML UNIT SC SCH (09:00)
[2018-04-03] MEDS ORDERED: TIOTROPIUM INHALER 18 MCG/DOSE 5 DOSE/MDI IH SCH (09:00)
[2018-04-03] MEDS ORDERED: FUROSEMIDE 20 MG TAB PO SCH (09:00)
[2018-04-03] MEDS ORDERED: ALLOPURINOL 100 MG TAB PO SCH (09:00)
[2018-04-03] MEDS ORDERED: PANTOPRAZOLE SODIUM 40 MG TAB PO SCH (09:00)
[2018-04-03] MEDS ORDERED: DULoxetine 60 MG CAP PO SCH (09:00)
== END 2018-04-02 18:38 | disposition home or self-care (01) ==
LOC: EDUNIT# → F3N 07:54
PROVIDERS: ADMIT Student in an Organized Health Care Education/Training Program; ATTEND Student in an Organized Health Care Education/Training Program
DX: R53.1 Weakness (principal); M79.602 Pain in left arm; M79.605 Pain in left leg; G89.29 Other chronic pain; D72.819 Decreased white blood cell count, unspecified; D64.9 Anemia, unspecified; M62.838 Other muscle spasm; J44.9 Chronic obstructive pulmonary disease, unspecified; E11.22 Type 2 diabetes mellitus with diabetic chronic kidney disease; I12.9 Hypertensive chronic kidney disease with stage 1 through stage 4 chronic kidney disease, or unspecified chronic kidney disease; N18.9 Chronic kidney disease, unspecified; I48.91 Unspecified atrial fibrillation; E03.9 Hypothyroidism, unspecified; E78.5 Hyperlipidemia, unspecified; F32.9 Major depressive disorder, single episode, unspecified; I08.3 Combined rheumatic disorders of mitral, aortic and tricuspid valves; G31.9 Degenerative disease of nervous system, unspecified; R93.0 Abnormal findings on diagnostic imaging of skull and head, not elsewhere classified; Z79.4 Long term (current) use of insulin; Z79.01 Long term (current) use of anticoagulants; Z99.3 Dependence on wheelchair; Z85.42 Personal history of malignant neoplasm of other parts of uterus; Z91.041 Radiographic dye allergy status; Z66 Do not resuscitate
CPT/HCPCS: 70450; 70544; 70551; 71045; 92610; 93005; 93306; 93880; 96361; 96374; 96375; 99285; G0378; G8996; G8997; J1200; J1815; J2060; J2270; J2930; Q9967; 82435-PO; 82565-PO; 82607-90; 82947-PO; 84132-PO; 84295-PO; 84520-PO; 85014-PO